=== PATIENT | male | born 1935 | race Asian ===

== ENCOUNTER 2018-02-05 06:13 | Day surgery (SDC) | payer MEDICARE, OTHER ==
[~2018-02-05] VITALS: Ht 162.6 cm; Wt 62.0 kg
[~2018-02-05 06:13] MED LIST: ALLO100T PO; DICLOFENAC SODIUM 0.1% 2.5 ML OPHTHALMIC SOLUTION ONE; DICLOFENAC SODIUM 0.1% 2.5 ML OPHTHALMIC SOLUTION OS ONE; LOSA25TA16 PO; METO25 PO; MOXIFLOXACIN HCL 0.5% 3 ML OPHTHALMIC SOLUTION ONE; MOXIFLOXACIN HCL 0.5% 3 ML OPHTHALMIC SOLUTION OS ONE; OMEP20 PO; PHENYLEPHRINE HCL 2.5% 2 ML OPHTHALMIC SOLUTION ONE; RINGERS SOLUTION,LACTATED 500 ML IV ONE; SIME80 PO; TRIA1CAP2 PO; TROPICAMIDE 1% 2 ML OPHTHALMIC SOLUTION ONE
[2018-02-05] MEDS ORDERED: VANCOMYCIN HCL 500 MG/VIAL IV ONE (06:14)
[2018-02-05] MEDS ORDERED: TETRACAINE HCL/PF 0.5% 4 ML OPHTHALMIC SOLUTION OS ONE (06:14)
[2018-02-05] MEDS ORDERED: BALANCED SALT 15 ML OPHTHALMIC IRRIG.SOLN OS ONE (06:14)
[2018-02-05] MEDS ORDERED: 0.9% SODIUM CHLORIDE 10 ML VIAL IV ONE (06:14)
[2018-02-05] MEDS ORDERED: DEXAMETHASONE SOD PHOS 4 MG/ML VIAL IVP ONE (06:14)
[2018-02-05] MEDS ORDERED: HYALURONATE SOD/CHONDROITIN SOD 0.5 ML VIAL IO ONE (06:14)
[2018-02-05] MEDS ORDERED: DEXAMETHASONE SOD PHOS 4 MG/ML VIAL ONE (06:57)
[2018-02-05] MEDS ORDERED: VANCOMYCIN HCL 500 MG/VIAL ONE (06:58)
[2018-02-05] MEDS ORDERED: TETRACAINE HCL VISCOUS 0.5% 0.6 ML OPHTHALMIC SOLUTION ONE (06:58)
[2018-02-05] MEDS ORDERED: LIDOCAINE/PF 1% 2 ML VIAL ONE (06:58)
[2018-02-05] MEDS ORDERED: EPINEPHrine 1:1,000 [1 MG/ML] AMP ONE (06:58)
[2018-02-05] MEDS ORDERED: ACETYLCHOLINE CHLORIDE 1 EA INTRAOCULAR SOLUTION KIT IO ONE (06:58)
[2018-02-05] MEDS: TROPICAMIDE 1% 2 ML OPHTHALMIC SOLUTION OS SCH ×2 (07:02→07:10)
[2018-02-05] MEDS: PHENYLEPHRINE HCL 2.5% 2 ML OPHTHALMIC SOLUTION OS SCH ×2 (07:02→07:10)
[2018-02-05] MEDS ORDERED: MIDAZOLAM HCL 2 MG/2 ML VIAL IVP ONE (12:00)
== END 2018-02-05 10:40 | disposition home or self-care (01) ==
LOC: SURGERY 06:13
PROVIDERS: ATTEND Specialist
DX: E11.22 Type 2 diabetes mellitus with diabetic chronic kidney disease (principal); H25.012 Cortical age-related cataract, left eye; I11.9 Hypertensive heart disease without heart failure; E78.00 Pure hypercholesterolemia, unspecified; M19.90 Unspecified osteoarthritis, unspecified site; K21.9 Gastro-esophageal reflux disease without esophagitis; Z90.49 Acquired absence of other specified parts of digestive tract; Z87.891 Personal history of nicotine dependence; Z79.899 Other long term (current) drug therapy
CPT/HCPCS: 65785; 66982; 93005; C1780; J1100; J3370; J3490; J7120; J0171; J2250